=== PATIENT | male | born 1985 | race Two or more races ===

== ENCOUNTER 2022-03-03 07:13 | Emergency (ER) | payer OTHER ==
[~2022-03-03] VITALS: Ht 167.6 cm; Wt 113.7 kg
[2022-03-03 07:49] VITALS: BP 136/82
[2022-03-03] MEDS ORDERED: IPRATROPIUM BROM 0.5 MG/2.5ML INH SOL NEB ONE (08:00)
[2022-03-03] MEDS ORDERED: ALBUTEROL SULF 2.5 MG/0.5ML(0.5%) NEB SOLN NEB ONE (08:00)
[2022-03-03] MEDS ORDERED: cefTRIAXone SOD 1,000 MG VL IM ONE (08:00)
[2022-03-03] MEDS ORDERED: PRED20TA2 PO (08:41)
[2022-03-03] MEDS ORDERED: AMOX-277 PO (08:41)
[2022-03-03] MEDS ORDERED: CIP03OS EACHEYE (08:41)
[2022-03-03] MEDS ORDERED: ALBU108A5 IN (08:41)
== END 2022-03-03 08:45 | disposition home or self-care (01) ==
LOC: ER 07:13
DX: J20.9 Acute bronchitis, unspecified (principal); H10.33 Unspecified acute conjunctivitis, bilateral; H66.93 Otitis media, unspecified, bilateral; R94.31 Abnormal electrocardiogram [ECG] [EKG]
CPT/HCPCS: 71046; 93005; 94640; 96372; 99283; J0696; J7644